=== PATIENT | male | born 1970 | race Caucasian/White ===

== ENCOUNTER 2018-05-04 18:04 | Emergency (ER) | payer BC ==
[~2018-05-04] VITALS: Ht 177.8 cm; Wt 95.7 kg
[2018-05-04 18:16] VITALS: Ht 177.8 cm; Wt 95.7 kg
[2018-05-04 19:27] LABS: PLATELET COUNT 247 x10^3mcL (130-400); RED CELL DISTRIBUTION WIDTH 13.8 % (11.5-14.5)
[2018-05-04 19:31] LABS: CALCIUM 9.3 mg/dL (8.5-10.1); CARBON DIOXIDE 23.7 mmol/L (21-32); CHLORIDE SERUM 103 mmol/L (98-107); CREATININE SERUM 0.7 mg/dL (0.7-1.3); GFR1 > 60 mL/min; GLUCOSE SERUM 100 mg/dL (74-106); POTASSIUM SERUM 3.4 mmol/L (3.5-5.1); SODIUM SERUM 138 mmol/L (136-145)
[2018-05-04 19:34] LABS: ALKALINE PHOSPHATASE 78 U/L (46-116); ALT/SGPT 34 U/L (16-63); AST/SGOT 20 U/L (15-37); BILIRUBIN TOTAL 0.6 mg/dL (0.20-1.00)
[2018-05-04 19:47] LABS: BASOPHIL % 2.3 % (0-2)
[2018-05-04 22:21] VITALS: BP 137/85
== END 2018-05-04 22:25 | disposition home or self-care (01) ==
LOC: ED 18:04
PROVIDERS: Emergency Medicine
DX: R07.89 Other chest pain (principal); R42 Dizziness and giddiness; F32.9 Major depressive disorder, single episode, unspecified; E78.00 Pure hypercholesterolemia, unspecified
CPT/HCPCS: 36415; 83880; 85378; Q0092

== ENCOUNTER 2018-05-16 17:22 | Emergency (ER) | payer BC ==
[~2018-05-16] VITALS: Ht 177.8 cm; Wt 89.9 kg
[2018-05-16 19:05] VITALS: BP 153/93
== END 2018-05-16 19:05 | disposition home or self-care (01) ==
LOC: ED 17:22
DX: J04.2 Acute laryngotracheitis (principal); F32.9 Major depressive disorder, single episode, unspecified; E78.00 Pure hypercholesterolemia, unspecified
CPT/HCPCS: J1100; Q0092